=== PATIENT | male | born 1960 | race Caucasian/White ===

== ENCOUNTER → 2020-12-12 | Outpatient (CLI) | payer BC ==
[~2020-12-12] MED LIST: AUGMENTIN 875-1 EACH PO; BENTYL 20MG TAB20 MG PO; CRESTOR 10 MG T10 MG GT; CYCLOBENZAPRINE10 MG PO; HYDROCHLOROTH12.5 MG PO; LODINE CAP 300300 MG PO; NAPROSYN EC 37375 MG PO; PERCOCET 5-3251 EACH PO; ROPINIROLE HCL0.5 MG PO; TIZANIDINE HCL4 MG PO; ZOFRAN ODT 4 MG4 MG SL
== END ==
LOC: KOH-I 10:47
DX: M25.512 Pain in left shoulder (principal)
CPT/HCPCS: 73030

== ENCOUNTER 2020-12-19 15:35 | Observation (INO) | payer BC ==
[~2020-12-19] VITALS: Ht 172.7 cm; Wt 104.3 kg
[~2020-12-19 15:35] MED LIST changes: -AUGMENTIN 875-1 EACH PO; -CRESTOR 10 MG T10 MG GT; -HYDROCHLOROTH12.5 MG PO; -PERCOCET 5-3251 EACH PO; -ROPINIROLE HCL0.5 MG PO; -TIZANIDINE HCL4 MG PO
[2020-12-19 18:14] LABS: HEMOGLOBIN 14.7 gm/dl (14.0-17.5); RED BLOOD COUNT 5.31 M/UL (4.20-5.50); WHITE BLOOD COUNT 11.2 K/UL (4.5-11.0)
[2020-12-19 18:30] LABS: BUN/CREATININE RATIO 25 (0-10)
[2020-12-20] MEDS ORDERED: HYDROCHLOROTH12.5 MG PO (01:18)
[2020-12-20] MEDS ORDERED: ROPINIROLE HCL0.5 MG PO (01:18)
[2020-12-20] MEDS ORDERED: CRESTOR 10 MG T10 MG GT (01:19)
[2020-12-20] MEDS ORDERED: TIZANIDINE HCL4 MG PO (01:19)
[2020-12-21 03:45] LABS: WHITE BLOOD COUNT 8.7 K/UL (4.5-11.0)
[2020-12-21 03:57] LABS: HEMOGLOBIN 12.5 gm/dl (14.0-17.5); RED BLOOD COUNT 4.55 M/UL (4.20-5.50)
[2020-12-21 04:07] LABS: BUN/CREATININE RATIO 30 (0-10)
[2020-12-21] MEDS ORDERED: AUGMENTIN 875-1 EACH PO (10:28)
[2020-12-21] MEDS ORDERED: PERCOCET 5-3251 EACH PO (11:00)
== END 2020-12-21 14:40 | disposition home or self-care (01) ==
LOC: ER1 15:35 → M/S 20:46 → CDU 20:46 → M/S 22:45
PROVIDERS: Orthopaedic Surgery; Physician Assistant; ADMIT Internal Medicine
PROC: 0QBQ0ZZ Excision of Right Toe Phalanx, Open Approach (ICD-10-PCS; principal; 2020-12-20 19:13)
DX: S92.411B Displaced fracture of proximal phalanx of right great toe, initial encounter for open fracture (principal); S92.421B Displaced fracture of distal phalanx of right great toe, initial encounter for open fracture; I10 Essential (primary) hypertension; E78.5 Hyperlipidemia, unspecified; F17.210 Nicotine dependence, cigarettes, uncomplicated; W28.XXXA Contact with powered lawn mower, initial encounter; Z20.822 Contact with and (suspected) exposure to COVID-19
CPT/HCPCS: 36415; 73630; 76000; 80048; 80053; 85025; 90471; 90715; 96374; 96375; 96376; 99284; C1713; G0378; J0295; J0690; J2250; J2270; J2405; J2543; J2704; J3010; U0002

== ENCOUNTER → 2021-08-03 | Outpatient (CLI) | payer BC ==
[~2021-08-03] MED LIST changes: +AUGMENTIN 875-1 EACH PO; +CRESTOR 10 MG T10 MG GT; +HYDROCHLOROTH12.5 MG PO; +PERCOCET 5-3251 EACH PO; +ROPINIROLE HCL0.5 MG PO; +TIZANIDINE HCL4 MG PO
== END ==
LOC: KOH-I 13:16
DX: M79.671 Pain in right foot (principal)
CPT/HCPCS: 93926

== ENCOUNTER → 2021-08-31 | Outpatient (CLI) | payer BC ==
[~2021-08-31] MED LIST changes: +HYDROCODON-ACE1 EAC2 PO
[2021-08-31 11:16] LABS: HEMOGLOBIN 14.3 gm/dl (14.0-17.5); RED BLOOD COUNT 5.33 M/UL (4.20-5.50); WHITE BLOOD COUNT 8.8 K/UL (4.5-11.0)
[2021-08-31 11:41] LABS: BUN/CREATININE RATIO 27 (0-10)
== END ==
LOC: OPSV2 10:30
PROVIDERS: Orthopaedic Surgery
DX: Z01.812 Encounter for preprocedural laboratory examination (principal); M86.9 Osteomyelitis, unspecified
CPT/HCPCS: 36415; 80048; 85025

== ENCOUNTER 2021-09-02 10:09 | Day surgery (SDC) | payer BC ==
[~2021-09-02] VITALS: Ht 172.7 cm; Wt 104.3 kg
[~2021-09-02 10:09] MED LIST changes: -HYDROCODON-ACE1 EAC2 PO
[2021-09-02] MEDS ORDERED: HYDROCODON-ACE1 EAC2 PO (17:08)
[2021-09-03 04:25] LABS: BUN/CREATININE RATIO 24 (0-10)
[2021-09-03] MEDS ORDERED: FLU VACCINE IM (11:07)
[2021-09-03] MEDS ORDERED: CEPHALEXIN500 MG PO (11:10)
== END 2021-09-03 13:14 | disposition home or self-care (01) ==
LOC: M/S 10:09 → OR 10:09 → M/S 18:07 → OR 18:07
DX: M86.671 Other chronic osteomyelitis, right ankle and foot (principal); L03.115 Cellulitis of right lower limb; G89.18 Other acute postprocedural pain; E78.5 Hyperlipidemia, unspecified; F17.210 Nicotine dependence, cigarettes, uncomplicated; Z79.899 Other long term (current) drug therapy; Z20.822 Contact with and (suspected) exposure to COVID-19
CPT/HCPCS: 36415; 80048; J0690; J1100; J2001; J2250; J2405; J2704; J2795; J3010; J3370; J7030; J7070; J7120

== ENCOUNTER 2021-10-09 11:26 | Emergency (ER) | payer BC ==
[~2021-10-09 11:26] MED LIST changes: +CEPHALEXIN500 MG PO; +FLU VACCINE IM; +HYDROCODON-ACE1 EAC2 PO
[2021-10-09 13:10] LABS: HEMOGLOBIN 13.3 gm/dl (14.0-17.5); RED BLOOD COUNT 4.8 M/UL (4.20-5.50); WHITE BLOOD COUNT 7.5 K/UL (4.5-11.0)
[2021-10-09 13:52] LABS: BUN/CREATININE RATIO 27 (0-10)
== END 2021-10-09 14:40 | disposition home or self-care (01) ==
LOC: ER1 11:26
PROVIDERS: Nurse Practitioner
DX: U07.1 COVID-19 (principal); F17.210 Nicotine dependence, cigarettes, uncomplicated; E78.5 Hyperlipidemia, unspecified; I10 Essential (primary) hypertension
CPT/HCPCS: 36600; 71045; 80048; 82550; 82553; 82803; 83874; 84484; 85025; 86140; 93005; 99284